=== PATIENT | female | born 1995 | race American Indian/Alaskan Native ===

== ENCOUNTER 2017-06-02 23:27 | Emergency (ER) | payer BC ==
[2017-06-03 01:13] LABS: Eosinophils % (Auto) 1.2 % (0.0-4.3); Hematocrit 38.2 % (30.3-42.9); Mean Corpuscular HGB Conc 34 % (30-34); Mean Corpuscular Hemoglobin 30 pg (28-32); Mean Corpuscular Volume 89 fl (79-97); Platelet Count 355 K/mm3 (140-440); Red Blood Count 4.28 M/mm3 (3.65-5.03); Red Cell Distribution Width 13.3 % (13.2-15.2); White Blood Count 7.8 K/mm3 (4.5-11.0)
[2017-06-03 01:34] LABS: Alanine Aminotransferase 33 units/L (7-56); Albumin 3.7 g/dL (3.9-5); Alkaline Phosphatase 80 units/L (35-129); Anion Gap 18 mmol/L; BUN/Creatinine Ratio 14.28; Blood Urea Nitrogen 10 mg/dL (7-17); Calcium 8.8 mg/dL (8.4-10.2); Carbon Dioxide 22 mmol/L (22-30); Chloride 103.2 mmol/L (98-107); Glucose 113 mg/dL (65-100); Lipase 23 units/L (13-60); Sodium 139 mmol/L (137-145); Total Protein 7.4 g/dL (6.3-8.2)
[2017-06-03 03:11] LABS: Bilirubin,Urine NEG (Negative); Blood,Urine NEG (Negative); Ketones,Urine NEG (Negative); Leukocyte Esterase,Urine NEG (Negative); Mucus,Urine FEW /HPF; Nitrite,Urine NEG (Negative); Protein,Urine <15 mg/dL mg/dL (Negative); Urobilinogen,Urine < 2.0 mg/dL (<2.0)
[2017-06-03] MEDS ORDERED: MOTRIN PO ONE (05:52)
--- NOTE | 2017-06-03 09:23 | Emergency Department Report ---
ED Abdominal Pain HPI - General Chief Complaint: Abdominal Pain Stated Complaint: CP Time Seen by Provider: 06/03/17 09:10 Source: patient, family Mode of arrival: Ambulatory Limitations: No Limitations - History of Present Illness Initial Comments: Patient here complaining and off abdominal pain that is radiated into her chest. She says she had episode of nausea and vomiting in last night. Denies any fever or chills. Pain is 10 out of 10 and burning. Intermittent. Denies any vaginal bleeding or discharge. Denies any back pain. Patient hasn't had a period since 11/25/2016 reports that her period is irregular and that she took several home test which was negative. Current medical history of morbid obesity .denies any urinary burning frequency or urgency. Denies any blood in her urine or any history of kidney stones.When asked reports burping with some acidic taste to mouth after burbing. MD Complaint: abdominal pain (radiating to chest) -: During the night Location: epigastric Radiation: chest Migration to: no migration Severity: severe Severity scale (0 -10): 10 Quality: burning Consistency: intermittent Improves With: nothing Worsens With: nothing Context: other (none) Associated Symptoms: nausea, vomiting. denies: diarrhea, fever, chills, constipation, dysuria, hematemesis, hematochezia, melena, hematuria, anorexia, syncope Treatments Prior to Arrival: other (none) - Related Data Previous Rx's Medication Instructions Recorded Last Taken Type Omeprazole 40 mg PO QDAY #30 capsule. 06/03/17 Unknown Rx Allergies Allergy/AdvReac Type Severity Reaction Status Date / Time No Known Allergies Allergy Verified 06/03/17 09:34 ED Review of Systems ROS: Stated complaint: CP Other details as noted in HPI Comment: All other systems reviewed and negative Constitutional: denies: chills, fever ENT: denies: ear pain, throat pain, epistaxis, congestion Respiratory: no symptoms reported Cardiovascular: chest pain. denies: palpitations, dyspnea on exertion, edema, syncope, paroxysmal nocturnal dyspnea Gastrointestinal: abdominal pain, nausea, vomiting. denies: diarrhea, constipation, hematemesis, melena, hematochezia Genitourinary: abnormal menses. denies: urgency, dysuria, frequency, hematuria , discharge, dyspareunia Musculoskeletal: denies: back pain, joint swelling, arthralgia, myalgia Skin: denies: rash Neurological: denies: headache, weakness, numbness, paresthesias, confusion, abnormal gait, vertigo ED Past Medical Hx - Past Medical History Previous Medical History?: Yes Additional medical history: Morbid Obesity - Surgical History Past Surgical History?: No - Family History Family history: no significant - Social History Smoking Status: Never Smoker Substance Use Type: Marijuana Other Social History: Single - Medications Home Medications: Home Medications Medication Instructions Recorded Confirmed Last Taken Type Omeprazole 40 mg PO QDAY #30 capsule. 06/03/17 Unknown Rx ED Physical Exam - General Limitations: No Limitations General appearance: alert, in no apparent distress - Head Head exam: Present: atraumatic, normocephalic, normal inspection - Eye Eye exam: Present: normal appearance, PERRL, EOMI. Absent: scleral icterus, conjunctival injection, nystagmus, periorbital swelling, periorbital tenderness Pupils: Present: normal accommodation - ENT ENT exam: Present: normal exam, normal orophraynx, mucous membranes moist, TM's normal bilaterally, normal external ear exam - Neck Neck exam: Present: normal inspection, full ROM. Absent: tenderness, lymphadenopathy - Respiratory Respiratory exam: Present: normal lung sounds bilaterally. Absent: respiratory distress, wheezes, rales, rhonchi, stridor, chest wall tenderness, accessory muscle use, decreased breath sounds, prolonged expiratory - Cardiovascular Cardiovascular Exam: Present: regular rate, normal rhythm, normal heart sounds. Absent: systolic murmur, diastolic murmur - GI/Abdominal GI/Abdominal exam: Present: soft, normal bowel sounds. Absent: distended, tenderness, guarding, rebound, rigid, organomegaly, mass, bruit, pulsatile mass , hernia - Extremities Exam Extremities exam: Present: normal inspection, full ROM, normal capillary refill , pedal edema (feet), other (no neurovascular compromise. Both feet tender to palpate. All extremities with good color, sensation, temperature and movement. Full range of motion to all extremities without any crepitus or effusion to joints. +5/5 strength in all extremities. Extremities with 2+ pulses and bounding.). Absent: tenderness, joint swelling, calf tenderness - Back Exam Back exam: Present: normal inspection, full ROM. Absent: tenderness, CVA tenderness (R), CVA tenderness (L), muscle spasm, paraspinal tenderness, vertebral tenderness, rash noted - Neurological Exam Neurological exam: Present: alert, oriented X3, normal gait, reflexes normal. Absent: motor sensory deficit - Psychiatric Psychiatric exam: Present: normal affect, normal mood - Skin Skin exam: Present: warm, dry, intact, normal color. Absent: rash ED Course Vital Signs 06/02/17 06/03/17 06/03/17 23:42 04:12 10:39 Temperature 98.8 F 98.5 F Pulse Rate 86 83 67 Respiratory 18 16 18 Rate Blood Pressure 148/76 145/93 Blood Pressure 148/76 126/78 [Left] O2 Sat by Pulse 100 100 Oximetry - Reevaluation(s) Reevaluation #1: 06/03/17 10:08 Patient is stable with normal lab work. Physical findings for bilateral pedal edema. Patient was given Zofran 8 mg ODT and Toradol 60 mg IM . Reevaluation #2: 06/03/17 12:39 Patient voiced relief of pain and nausea status post Zofran and Toradol. Chest x-ray unremarkable. Lab work is stable to include troponin, CBC CMP and urinalysis. Negative test. No changes abdominal assessment. Reevaluation #3: 06/03/17 14:11 BNP within normal limits and chest x-ray with normal heart size. Patient had bilateral lower extremity duplex venous ultrasound which was negative for DVT and SVT. Abdominal exam remains unchanged. Chest stable without any pain ED Medical Decision Making - Lab Data Result diagrams: 06/03/17 00:55 06/03/17 00:55 Lab Results 06/02/17 06/03/17 06/03/17 Range/Units 03:00 00:55 00:55 WBC 7.8 (4.5-11.0) K/mm3 RBC 4.28 (3.65-5.03) M/mm3 Hgb 13.0 (10.1-14.3) gm/dl Hct 38.2 (30.3-42.9) % MCV 89 (79-97) fl MCH 30 (28-32) pg MCHC 34 (30-34) % RDW 13.3 (13.2-15.2) % Plt Count 355 (140-440) K/mm3 Lymph % (Auto) 34.9 (13.4-35.0) % Nelson % (Auto) 6.0 (0.0-7.3) % Eos % (Auto) 1.2 (0.0-4.3) % Baso % (Auto) 1.0 (0.0-1.8) % Lymph # 2.7 (1.2-5.4) K/mm3 Nelson # 0.5 (0.0-0.8) K/mm3 Eos # 0.1 (0.0-0.4) K/mm3 Baso # 0.1 (0.0-0.1) K/mm3 Seg Neutrophils % 56.9 (40.0-70.0) % Seg Neutrophils # 4.5 (1.8-7.7) K/mm3 Sodium 139 (137-145) mmol/L Potassium 4.0 (3.6-5.0) mmol/L Chloride 103.2 (98-107) mmol/L Carbon Dioxide 22 (22-30) mmol/L Anion Gap 18 mmol/L BUN 10 (7-17) mg/dL Creatinine 0.7 (0.7-1.2) mg/dL Estimated GFR > 60 ml/min BUN/Creatinine Ratio 14.28 % Glucose 113 H (65-100) mg/dL Calcium 8.8 (8.4-10.2) mg/dL Total Bilirubin 0.20 (0.1-1.2) mg/dL AST 26 (5-40) units/L ALT 33 (7-56) units/L Alkaline Phosphatase 80 (35-129) units/L Troponin T (0.00-0.029) ng/mL NT-Pro-B Natriuret Pep (0-450) pg/mL Total Protein 7.4 (6.3-8.2) g/dL Albumin 3.7 L (3.9-5) g/dL Albumin/Globulin Ratio 1.0 % Lipase 23 (13-60) units/L HCG, Qual (Negative) Urine Color Yellow (Yellow) Urine Turbidity Clear (Clear) Urine pH 6.0 (5.0-7.0) Ur Specific [place] 1.017 (1.003-1.030) Urine Protein <15 mg/dl (Negative) mg/dL Urine Glucose (UA) Neg (Negative) mg/dL Urine Ketones Neg (Negative) mg/dL Urine Blood Neg (Negative) Urine Nitrite Neg (Negative) Urine Bilirubin Neg (Negative) Urine Urobilinogen < 2.0 (<2.0) mg/dL Ur Leukocyte Esterase Neg (Negative) Urine WBC (Auto) 2.0 (0.0-6.0) /HPF Urine RBC (Auto) 4.0 (0.0-6.0) /HPF U Epithel Cells (Auto) 2.0 (0-13.0) /HPF Urine Mucus Few /HPF 06/03/17 06/03/17 Range/Units 00:55 09:44 WBC (4.5-11.0) K/mm3 RBC (3.65-5.03) M/mm3 Hgb (10.1-14.3) gm/dl Hct (30.3-42.9) % MCV (79-97) fl MCH (28-32) pg MCHC (30-34) % RDW (13.2-15.2) % Plt Count (140-440) K/mm3 Lymph % (Auto) (13.4-35.0) % Nelson % (Auto) (0.0-7.3) % Eos % (Auto) (0.0-4.3) % Baso % (Auto) (0.0-1.8) % Lymph # (1.2-5.4) K/mm3 Nelson # (0.0-0.8) K/mm3 Eos # (0.0-0.4) K/mm3 Baso # (0.0-0.1) K/mm3 Seg Neutrophils % (40.0-70.0) % Seg Neutrophils # (1.8-7.7) K/mm3 Sodium (137-145) mmol/L Potassium (3.6-5.0) mmol/L Chloride (98-107) mmol/L Carbon Dioxide (22-30) mmol/L Anion Gap mmol/L BUN (7-17) mg/dL Creatinine (0.7-1.2) mg/dL Estimated GFR ml/min BUN/Creatinine Ratio % Glucose (65-100) mg/dL Calcium (8.4-10.2) mg/dL Total Bilirubin (0.1-1.2) mg/dL AST (5-40) units/L ALT (7-56) units/L Alkaline Phosphatase (35-129) units/L Troponin T < 0.010 (0.00-0.029) ng/mL NT-Pro-B Natriuret Pep 24.54 (0-450) pg/mL Total Protein (6.3-8.2) g/dL Albumin (3.9-5) g/dL Albumin/Globulin Ratio % Lipase (13-60) units/L HCG, Qual Negative (Negative) Urine Color (Yellow) Urine Turbidity (Clear) Urine pH (5.0-7.0) Ur Specific [place] (1.003-1.030) Urine Protein (Negative) mg/dL Urine Glucose (UA) (Negative) mg/dL Urine Ketones (Negative) mg/dL Urine Blood (Negative) Urine Nitrite (Negative) Urine Bilirubin (Negative) Urine Urobilinogen (<2.0) mg/dL Ur Leukocyte Esterase (Negative) Urine WBC (Auto) (0.0-6.0) /HPF Urine RBC (Auto) (0.0-6.0) /HPF U Epithel Cells (Auto) (0-13.0) /HPF Urine Mucus /HPF - EKG Data -: EKG Interpreted by Me (Attending) EKG shows normal: sinus rhythm (94 bpm) Rate: normal - EKG Data Interpretation: no acute changes, normal EKG - Radiology Data Radiology results: report reviewed Chest Xray unremarkable - Medical Decision Making ED course: Pt here complaining of abdominal pain that started in the night time pain radiating from mid abdomen to mid chest area. Patient has no history of heart disease or any other medical problem her medical problem that she has his morbid obesity with a BMI of 59.3. Patient with normal physical exam except she has bilateral pedal edema which she says she had in the past and it comes and goes. There was no evidence of cellulitis. Venous Doppler ultrasound done and was negative for SVT or DVT. Patient had EKG which was stable and normal sinus rhythm 94 bpm. Troponin level is normal, CBC and BMP is normal and BNP is normal. X-ray revealed no acute cardiopulmonary findings. Patient has negative test. All results were communicated with patient along with diagnosis and treatment plan. She voiced understanding. Patient was given Motrin 800 mg in the office at 5:53 AM today and it didn't help her pain therefore she was given Toradol 60 mg IM and Zofran 8 mg ODT which relieved her pain. I discussed with patient that she will need to elevate her feet on pillows when she is lying down as she has dependent edema. I also discussed with her based on my physical findings and her description of burping with acidic taste to mouth she more than likely has dyspepsia but she will need to follow up with a geriatric aide to rule out any heart problems. Patient vital signs remained stable throughout ED stay. Abdominal pain has resolved. Patient is no longer having chest pain. Based on perc patient is 0% risk for pulmonary embolism. Her cardiac risk score is low. She has risk factor for cardiac disease due to chronic morbid obesity. Show with diagnosis of atypical chest pain, abdominal pain, dyspepsia and bilateral pedal edema which is dependent. She discharged home with her family in stable condition. She was given prescription for Prilosec and instructed to avoid spicey and acidic foods. Critical care attestation.: If time is entered above; I have spent that time in minutes in the direct care of this critically ill patient, excluding procedure time. ED Disposition Clinical Impression: Dyspepsia, Atypical chest pain, Morbid obesity with body mass index (BMI) of 50.0 to 59.9 in adult, Pedal edema Abdominal pain Qualifiers: Abdominal location: periumbilical Qualified Code(s): R10.33 - Periumbilical pain Disposition: DC-01 TO HOME OR SELFCARE Is pt being admited?: No Does the pt Need Aspirin: No Condition: Stable Instructions: Abdominal Pain (ED), Chest Pain (ED), Leg Edema (ED), Obesity (ED ), Weight Management (ED), Weight Loss Tips for Athletes (ED), Heart Healthy Diet (ED), Gastroesophageal Reflux Disease (ED), Low Sodium Diet (ED) Additional Instructions: Please take medication as prescribed Aviod spicy and acidic food He will need to follow up with geriatric aide for further testing for atypical chest pain. Based on physical finding and history and physical, you have acid reflux and was prescribed Prilosec. Follow-up with primary care physician in 2-3 days. Please limit your salt intake as this medication can cause you to accumulate follow up in your body which will lead to swelling. Please exercise at least 3-4 times a day for 60 minutes. Walk-in is very good and will help you to lose weight. Prescriptions: Omeprazole 40 mg PO QDAY #30 capsule.dr Referrals: NORBERT ROJAS MD [Staff Physician] - 2-3 Days [facility], [Primary Care Provider] - 2-3 Days JACINTO VALERIO MD [Staff Physician] - 3-5 Days [facility] [Provider Group] - 2-3 Days Forms: Accompanied Note, Work/School Release Form(ED)
[2017-06-03] MEDS ORDERED: ZOFRAN ODT PO ONE (09:36)
[2017-06-03] MEDS ORDERED: TORADOL IM ONE (09:36)
--- NOTE | 2017-06-03 10:05 | XRay Report ---
ROUTINE CHEST, TWO VIEWS: HISTORY: Chest pain, pedal edema. The trachea, heart, mediastinal contour, lung saab and bony thorax are unremarkable. IMPRESSION: Unremarkable chest x-ray.
[2017-06-03 14:50] VITALS: BP 117/74
== END 2017-06-03 14:49 | disposition home or self-care (01) ==
LOC: ED 23:27
DX: R07.89 Other chest pain (principal); R10.13 Epigastric pain; E66.01 Morbid (severe) obesity due to excess calories; R60.0 Localized edema; Z68.43 Body mass index [BMI] 50.0-59.9, adult; F12.10 Cannabis abuse, uncomplicated
CPT/HCPCS: 36415; 71020; 80053; 81001; 83690; 83880; 84484; 84703; 85025; 93005; 93010; 93970; 96372; 99284; J1885; Q0162